=== PATIENT | male | born 1940 | race Caucasian/White ===

== ENCOUNTER 2022-04-04 09:05 | Outpatient (CLI) | payer MEDICARE, BC, SELFPAY ==
[2022-04-04 09:13] VITALS: BP 165/68; PULSE 88; RESP 16; O2SAT 98
[2022-04-04] MEDS: BRIMONIDINE TARTRATE 0.2% OPHTH 1 DROP EYE-RIGHT ×2 (09:20→10:37)
[2022-04-04] MEDS: TETRACAINE 0.5% OPHTH 1 DROP EYE-RIGHT ×3 (09:20→10:23)
--- NOTE | 2022-04-04 10:49 | W.PM.OPTPROC ---
Procedure Note Date of procedure: 04/04/22 Will [facility] bill your pro fee for this procedure?: Yes Procedure Description: SURGEON: Cary Clay MD PREOPERATIVE DIAGNOSIS: Posterior capsular opacity, right eye POSTOPERATIVE DIAGNOSIS: Posterior capsular opacity, right eye PROCEDURE: YAG laser capsulotomy, right eye ANESTHESIA: Topical. ESTIMATED BLOOD LOSS: None PATHOLOGY SPECIMEN: None COMPLICATIONS: None INDICATIONS: See consult note for details. The risks, benefits and alternatives of the procedure were explained to the patient, who elected to proceed and signed informed consent to do so. PROCEDURE: The patient was brought to the pre-holding area where the right eye was identified as the operative eye. I placed my initials above this eye. The patient received 2 sets of 1 drop of 0.5% tetracaine and 1 drop of 1% tropicamide. They also received 1 drop of 0.2% brimonidine. They received 1 drop of 0.5% tetracaine immediately prior to bringing them back for the procedure. The patient was then brought to the procedure room where the right eye was again identified as the operative eye. A YAG Delvin capsulotomy lens was placed on the eye. The laser was administered using a total number of 8 shots with an energy of 2.4 mJ per shot for a total energy of 19 mJ. The patient tolerated the procedure well. DISPOSITION: The patient was taken back to the pre-holding area and given 1 drop of 0.2% brimonidine in the right eye. They were discharged to home in stable condition. The patient was instructed to call me or go to the emergency department with any sudden change, including dramatic loss of vision, severe pain in the eye or eyebrow region, nausea, or vomiting. The patient was instructed to use the 0.2% brimonidine 1 drop 2 times a day in the right eye for 1 week. The patient will follow up in the clinic in 1-2 weeks. Surgeon: Cary Clay MD
== END 2022-04-04 10:50 | disposition home or self-care (01) ==
PROVIDERS: PCP Family Medicine; Visit Provider Ophthalmology
DX: H26.9 Unspecified cataract (principal)
CPT/HCPCS: 66821; A9270

== ENCOUNTER 2024-04-17 07:25 | Outpatient (CLI) | payer MEDICARE, BC, SELFPAY ==
--- NOTE | 2024-04-17 09:07 | P.ANES_ITS ---
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
--- NOTE | 2024-04-17 09:07 | W.ANESCHARGE ---
Anesthesia Charges Start Date/Time Anesthesia Start Date: 04/17/24 Anesthesia Start Time: 08:43 Stop Date/Time Anesthesia Stop Date: 04/17/24 Anesthesia Stop Time: 09:05 Summary Extremes of Age - Over 70 or under 1: FRAUD MANAGER Coding CPT Codes CPT Codes: GENOVEVA LWR INTST SCR COLSC - 59244 ([id number]) P2 - PATIENT W/MILD SYST DISEASE, QX - FRAUD MANAGER SVC W/ MD MED DIRECTION, QK - COMMUNICATIONS TOWER CLIMBER 2-4 CNCRNT ANES PROC Additional Codes: Summary - Extremes of Age - Over 70 or under 1: FRAUD MANAGER ([id number])
--- NOTE | 2024-04-17 09:09 | P.ANES_ITS ---
Anesthesia Charges Start Date/Time Anesthesia Start Date: 04/17/24 Anesthesia Start Time: 08:43 Stop Date/Time Anesthesia Stop Date: 04/17/24 Anesthesia Stop Time: 09:05 Summary Extremes of Age - Over 70 or under 1: MDA Coding CPT Codes CPT Codes: ANES LWR INTST SCR COLSC - 53543 ([id number]) QK - MILLINERY DEPARTMENT MANAGER 2-4 CNCRNT ANES PROC, QX - SHIPPING/RECEIVING MANAGER SVC W/ MD MED DIRECTION, P2 - PATIENT W/MILD SYST DISEASE Additional Codes: Summary - Extremes of Age - Over 70 or under 1: MDA ([id number])
== END 2024-04-17 07:26 | disposition home or self-care (01) ==
PROVIDERS: PCP Family Medicine; Visit Provider Internal Medicine Gastroenterology
DX: Z12.11 Encounter for screening for malignant neoplasm of colon (principal); D12.2 Benign neoplasm of ascending colon; D12.4 Benign neoplasm of descending colon; K63.5 Polyp of colon; K57.30 Diverticulosis of large intestine without perforation or abscess without bleeding
CPT/HCPCS: 00811; 00812; 45378; 45385; 99100; J2704